=== PATIENT | female | born 2000 | race Two or more races ===

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

== ENCOUNTER 2020-03-20 04:42 | Emergency (ER) | payer OTHER ==
[~2020-03-20] VITALS: Ht 157.5 cm; Wt 77.1 kg
[2020-03-20] MEDS ORDERED: PEPCID AC20 MG PO ×2 (04:56→11:19)
[2020-03-20] MEDS ORDERED: ONDANSETRON HCL4 MG PO (11:19)
[2020-03-20] MEDS ORDERED: INTESTINEX680 M1 PO (11:19)
== END 2020-03-20 12:09 | disposition home or self-care (01) ==
LOC: EMR PED 04:42
DX: K29.60 Other gastritis without bleeding (principal); Z03.818 Encounter for observation for suspected exposure to other biological agents ruled out

== ENCOUNTER 2021-08-11 00:21 | Emergency (ER) | payer OTHER ==
[~2021-08-11] VITALS: Ht 157.5 cm; Wt 80.7 kg
[~2021-08-11 00:21] MED LIST changes: +INTESTINEX680 M1 PO; +ONDANSETRON HCL4 MG PO; +PEPCID AC20 MG PO
[2021-08-11] MEDS ORDERED: ALBUTEROL2.5 MG/3 M IH (02:56)
[2021-08-11] MEDS ORDERED: ZYNCOF 20-400120 ML PO (02:56)
[2021-08-11] MEDS ORDERED: ZITHROMAX500 MG PO (02:56)
== END 2021-08-11 03:15 ==
LOC: ER 00:21
DX: A31.9 Mycobacterial infection, unspecified (principal); Z20.822 Contact with and (suspected) exposure to COVID-19

== ENCOUNTER 2021-08-16 01:46 | Emergency (ER) | payer OTHER ==
[~2021-08-16] VITALS: Ht 157.5 cm; Wt 80.3 kg
[~2021-08-16 01:46] MED LIST changes: +ALBUTEROL2.5 MG/3 M IH; +ZITHROMAX500 MG PO; +ZYNCOF 20-400120 ML PO
[2021-08-16] MEDS ORDERED: PROTONIX20 MG PO (02:10)
[2021-08-16] MEDS ORDERED: VITAMIN C WIT1000 MG PO (04:56)
[2021-08-16] MEDS ORDERED: ACETAMINOPHEN650 M2 PO (04:56)
[2021-08-16] MEDS ORDERED: AZITHROMYCIN500 MG PO (04:56)
== END 2021-08-16 05:20 | disposition home or self-care (01) ==
LOC: ER 01:46
DX: A49.3 Mycoplasma infection, unspecified site (principal); J06.9 Acute upper respiratory infection, unspecified; Z20.822 Contact with and (suspected) exposure to COVID-19; Z91.013 Allergy to seafood

== ENCOUNTER 2021-12-26 08:26 | Emergency (ER) | payer OTHER ==
[~2021-12-26] VITALS: Ht 157.5 cm; Wt 81.6 kg
[~2021-12-26 08:26] MED LIST changes: +ACETAMINOPHEN650 M2 PO; +AZITHROMYCIN500 MG PO; +PROTONIX20 MG PO; +VITAMIN C WIT1000 MG PO
[2021-12-26] MEDS ORDERED: PROTONIX20 MG PO (08:57)
[2021-12-26] MEDS ORDERED: PEPCID20 MG PO (08:57)
[2021-12-26] MEDS ORDERED: CIPRO500 MG PO (12:03)
== END 2021-12-26 12:07 | disposition home or self-care (01) ==
LOC: ER 08:26
DX: N76.0 Acute vaginitis (principal); B37.3 Candidiasis of vulva and vagina; N39.0 Urinary tract infection, site not specified; Z91.013 Allergy to seafood

== ENCOUNTER 2022-01-11 01:35 | Emergency (ER) | payer OTHER ==
[~2022-01-11] VITALS: Ht 157.5 cm; Wt 81.2 kg
[~2022-01-11 01:35] MED LIST changes: +CIPRO500 MG PO; +PEPCID20 MG PO
[2022-01-11] MEDS ORDERED: PROAIR RESPICL90 MCG (01:46)
== END 2022-01-11 09:14 | disposition home or self-care (01) ==
LOC: ER 01:35
DX: B34.9 Viral infection, unspecified (principal); Z20.822 Contact with and (suspected) exposure to COVID-19; Z91.013 Allergy to seafood

== ENCOUNTER 2022-02-02 19:15 | Emergency (ER) | payer OTHER ==
[~2022-02-02] VITALS: Ht 157.5 cm; Wt 82.6 kg
[~2022-02-02 19:15] MED LIST changes: +PROAIR RESPICL90 MCG
== END 2022-02-02 23:05 | disposition home or self-care (01) ==
LOC: ER 19:15
DX: J03.80 Acute tonsillitis due to other specified organisms (principal)

== ENCOUNTER 2022-02-23 18:44 | Emergency (ER) | payer OTHER ==
[~2022-02-23] VITALS: Ht 157.5 cm; Wt 83.0 kg
== END 2022-02-23 20:38 | disposition home or self-care (01) ==
LOC: ER 18:44
DX: U07.1 COVID-19 (principal); Z91.013 Allergy to seafood

== ENCOUNTER 2022-04-04 20:46 | Emergency (ER) | payer OTHER ==
[~2022-04-04] VITALS: Ht 157.5 cm; Wt 82.6 kg
[2022-04-04] MEDS ORDERED: MILI 0.25-0.031 EACH PO (21:18)
[2022-04-05] MEDS ORDERED: BACTRIM DS TAB1 EACH PO (01:48)
== END 2022-04-05 03:40 | disposition home or self-care (01) ==
LOC: ER 20:46
DX: R10.2 Pelvic and perineal pain (principal); N83.00 Follicular cyst of ovary, unspecified side; N39.0 Urinary tract infection, site not specified; Z91.013 Allergy to seafood

== ENCOUNTER 2022-11-20 20:00 | Emergency (ER) | payer OTHER ==
[~2022-11-20] VITALS: Ht 157.5 cm; Wt 82.6 kg
[~2022-11-20 20:00] MED LIST changes: +BACTRIM DS TAB1 EACH PO; +MILI 0.25-0.031 EACH PO
== END 2022-11-20 22:50 | disposition home or self-care (01) ==
LOC: ER 20:00
DX: S30.202A Contusion of unspecified external genital organ, female, initial encounter (principal); X58.XXXA Exposure to other specified factors, initial encounter; Y93.89 Activity, other specified; Y92.89 Other specified places as the place of occurrence of the external cause; Y99.9 Unspecified external cause status; Z91.013 Allergy to seafood

== ENCOUNTER 2023-03-17 16:25 | Emergency (ER) | payer OTHER ==
[~2023-03-17] VITALS: Ht 157.5 cm; Wt 78.0 kg
[2023-03-17 18:12] LABS: HEMATOCRIT 38.9 % (36.0-45.00); HEMOGLOBIN 12.8 g/dL (12.0-15.00); MEAN CORPUSCULAR HEMOGLOBIN 27.7 pg (27.00-32.0); MEAN CORPUSCULAR HGB CONC 32.9 g/dl (32.0-36.0); PLATELET COUNT 408 K/uL (150-450); RED BLOOD COUNT 4.63 M/uL (4.00-6.00); RED CELL DISTRIBUTION WIDTH 13.3 % (11.5-14.5)
[2023-03-17 20:41] LABS: ABG PH 7.397 (7.35-7.45); ABG PO2 96.9 mmHg (80-100); ABG pCO2 34.8 mmHg (35-45); BASE EXCESS -3.2 mmol/l; BICARBONATE 20.9 mmol/l (23-25); SaO2 97.4 %; allen test SATISFACTORY; o2 21 %; puncture site RADIAL LEFT
[2023-03-17] MEDS ORDERED: XOPENEX CO1.25 MG/0. IH (21:45)
[2023-03-17] MEDS ORDERED: MEDROLPACK PO (21:45)
[2023-03-17] MEDS ORDERED: ATROVENT HFA12.9 GM IH (21:45)
[2023-03-17] MEDS ORDERED: TUSSIN DM LIQU118 ML PO (21:45)
[2023-03-17] MEDS ORDERED: LEVOFLOXACIN750 MG PO (21:45)
== END 2023-03-17 22:14 | disposition home or self-care (01) ==
LOC: ER 16:25
PROVIDERS: Nurse Practitioner Family
DX: J45.901 Unspecified asthma with (acute) exacerbation (principal); Z91.013 Allergy to seafood; K29.70 Gastritis, unspecified, without bleeding; Z20.822 Contact with and (suspected) exposure to COVID-19

== ENCOUNTER 2024-01-21 12:59 | Emergency (ER) | payer OTHER ==
[~2024-01-21] VITALS: Ht 157.5 cm; Wt 96.6 kg
[~2024-01-21 12:59] MED LIST changes: +ATROVENT HFA12.9 GM IH; +CLARITIN5 MG PO; +LEVOFLOXACIN750 MG PO; +MEDROLPACK PO; +TUSSIN DM LIQU118 ML PO; +XOPENEX CO1.25 MG/0. IH
[2024-01-21] MEDS ORDERED: ORPHENADRINE CITRATE 30 MG/ML AMPUL IM STA (14:09)
[2024-01-21] MEDS ORDERED: KETOROLAC TROMETHAMINE 60 MG VIAL IM STA (14:10)
[2024-01-21] MEDS ORDERED: ORPHENADRINE CITRATE 30 MG/ML AMPUL ONE (14:28)
[2024-01-21] MEDS ORDERED: KETOROLAC TROMETHAMINE 60 MG VIAL IM ONE (14:29)
== END 2024-01-21 16:16 | disposition home or self-care (01) ==
LOC: ER 13:00
DX: M62.838 Other muscle spasm (principal); G44.209 Tension-type headache, unspecified, not intractable; Z91.013 Allergy to seafood

== ENCOUNTER 2024-01-24 23:55 | Emergency (ER) | payer OTHER ==
[~2024-01-24] VITALS: Ht 157.5 cm; Wt 96.6 kg
[2024-01-25 02:46] LABS: HEMATOCRIT 41.2 % (36.0-45.00); HEMOGLOBIN 13.7 g/dL (12.0-15.00); MEAN CELL VOLUME 82.4 fL (80.00-100.00); MEAN CORPUSCULAR HEMOGLOBIN 27.3 pg (27.00-32.0); MEAN CORPUSCULAR HGB CONC 33.2 g/dl (32.0-36.0); PLATELET COUNT 454 K/uL (150-450); RED CELL DISTRIBUTION WIDTH 13.5 % (11.5-14.5)
== END 2024-01-25 03:22 | disposition home or self-care (01) ==
LOC: ER 23:57
DX: J06.9 Acute upper respiratory infection, unspecified (principal); Z20.822 Contact with and (suspected) exposure to COVID-19; Z91.013 Allergy to seafood

== ENCOUNTER 2024-10-30 16:30 | Emergency (ER) | payer OTHER ==
[~2024-10-30] VITALS: Ht 157.5 cm; Wt 89.4 kg
[2024-10-30 23:25] LABS: BASO % 0.2 % (0.1-1.2); EOS # 0.26 (0.04-0.54); EOS % 1.2 % (0.7-7.0); HEMATOCRIT 38.6 % (34.1-44.9); LYMPH # 3.05 (1.18-3.74); LYMPH % 13.6 % (19.3-53.1); MEAN CORPUSCULAR HEMOGLOBIN 28.1 pg (25.6-32.2); MONO # 1.16 (0.24-0.82); MONO % 5.2 % (4.7-12.5); NEUT # 17.81 (1.56-6.13); NEUT % 79.2 % (34.0-71.1); PLATELET COUNT 416 K/uL (163-369); RED BLOOD COUNT 4.63 M/uL (3.93-5.22); RED CELL DISTRIBUTION WIDTH 12.4 % (11.6-14.4)
[2024-10-31 00:21] LABS: COVID-19 AG NEGATIVE (NEGATIVE)
[2024-10-31 00:24] LABS: INFLUENZA A AG NEGATIVE (NEGATIVE); INFLUENZA B AG NEGATIVE (NEGATIVE)
[2024-10-31] MEDS ORDERED: CEFTRIAXONE SODIUM 1,000 MG VIAL IM STA (00:51)
[2024-10-31] MEDS ORDERED: CEFTRIAXONE SODIUM 1,000 MG VIAL ONE (00:52)
== END 2024-10-31 00:55 | disposition home or self-care (01) ==
LOC: ER 16:30
PROVIDERS: Preventive Medicine Public Health & General Preventive Medicine
DX: J03.90 Acute tonsillitis, unspecified (principal); Z87.09 Personal history of other diseases of the respiratory system; Z91.013 Allergy to seafood; Z20.822 Contact with and (suspected) exposure to COVID-19

== ENCOUNTER 2025-03-17 13:32 | Emergency (ER) | payer OTHER ==
[~2025-03-17] VITALS: Ht 157.5 cm; Wt 93.0 kg
[2025-03-17] MEDS ORDERED: PEPCID AC10 MG PO (14:02)
[2025-03-17 16:17] LABS: BASO % 0.3 % (0.1-1.2); EOS # 0.48 (0.04-0.54); EOS % 2.7 % (0.7-7.0); LYMPH # 3.45 (1.18-3.74); LYMPH % 19.3 % (19.3-53.1); MEAN PLATELET VOLUME 9.10 fl (9.4-12.4); MONO # 1.25 (0.24-0.82); MONO % 7.0 % (4.7-12.5); NEUT # 12.49 (1.56-6.13); NEUT % 70.1 % (34.0-71.1); RED CELL DISTRIBUTION WIDTH 12.2 % (11.6-14.4)
[2025-03-17 17:08] LABS: ALT/SGPT 22.0 U/L (12-78); AST/SGOT 11.0 U/L (15-37); BILIRUBIN TOTAL 0.44 mg/dL (0.3-1.2); BUN CREA RATIO 15.0 (7.0-25.0); CREATININE SERUM 0.61 mg/dL (0.55-1.02); GFR 119.5; GLOBULINA 3.8 G/DL (2.4-3.5); GLUCOSE FASTING 84.0 mg/dL (65-100); OSMOLALITY SERUM 272.0 MOSM/KG (275-295)
== END 2025-03-17 18:15 | disposition home or self-care (01) ==
LOC: ER 13:32
PROVIDERS: General Practice
DX: J11.1 Influenza due to unidentified influenza virus with other respiratory manifestations (principal); J45.901 Unspecified asthma with (acute) exacerbation; Z91.013 Allergy to seafood